=== PATIENT | male | born 1950 | race Caucasian/White ===

== ENCOUNTER 2016-11-16 22:32 | Inpatient (IN) | payer OTHER, MEDICAID ==
[~2016-11-16] VITALS: Ht 172.7 cm; Wt 82.8 kg
--- NOTE | ~2016-11-16 | CON ---
[place], [place] REPORT OF CONSULTATION NAME: LES COOLEY [facility] #: [id number] UNIT #: [id number] ROOM: 404 DOCTOR: ALISSA NDIAYE MD BIRTHDATE: [birth year] DOS: 11/21/2016 REASON FOR CONSULTATION: Assess the patient for ongoing acute exacerbation of COPD exacerbation. HISTORY OF PRESENT ILLNESS: A 65-year-old white male who has been noted frequently was admitted to the hospital for social reasons and also noted with acute exacerbation of COPD. The patient has been recently treated in the hospital and discharged home for this patient on 11/16/2016. The patient had bronchoscopy done at that time with significant removal of mucus plug improvement in his respiratory status noted. The patient came back and readmitted to the hospital. The patient on 11/17/2016 complaining of symptoms of shortness of breath. He was still noted symptoms of shortness of breath, which is described with exertion, not present at rest. He was also complaining of generalized pain in the joints. The cough has been noted mild to moderate at this time without any sputum expectoration or symptoms of wheezing. The patient denies symptoms of hemoptysis. REVIEW OF SYSTEMS: CONSTITUTIONAL: Complaining of fatigue. There were no symptoms of fever or chills. EYES: Denies burning, redness, tenderness. EARS, NOSE, AND THROAT: has sore throat, hoarseness, or otalgia. Postnasal drainage. GASTROINTESTINAL: Denies nausea, vomiting, diarrhea, abdominal pain, hematemesis, melena. CARDIOVASCULAR: Denies anginal pain, edema or pain of the lower extremities. SKIN: The patient with history of chronic psoriasis of the skin. No other abnormal lesions or rashes. GENITOURINARY: Denies dysuria, suprapubic pain, hematuria. GASTROINTESTINAL: Dysphagia, nausea, vomiting, diarrhea, hematemesis, melena. CENTRAL NERVOUS SYMPTOMS: Denies any dizziness, headache, diplopia or seizures. Remaining systems were reviewed. They were noted all negative. PAST MEDICAL HISTORY: Reviewed with the patient and they remained unchanged since my consultation on 11/08/2016 hospitalization. PAST SURGICAL HISTORY: Reviewed with the patient and they remained unchanged since my consultation on 11/08/2016 hospitalization. SOCIAL HISTORY: Reviewed with the patient and they remained unchanged since my consultation on 11/08/2016 hospitalization. FAMILY HISTORY: Reviewed with the patient and they remained unchanged since my consultation on 11/08/2016 hospitalization. The patient had a bronchoscopy that was done in 11/13/2016 was additional information. The consultation has been available to the document in the [employer] for review for the reference. [place], [place] REPORT OF CONSULTATION NAME: LES COOLEY UNIT #: [id number] ROOM: 404 DOCTOR: NEGRITO MCCARTNEY MD,ALISSA BIRTHDATE: [birth year] MEDICATIONS: Current administered medication patient noted use of diltiazem, enoxaparin 120 mg subq daily, lisinopril, finasteride, Protonix, Mucinex, Dulera, Singulair, naproxen, IV Solu-Medrol, DuoNeb, Levaquin, hydroxyzine p.r.n. and other p.r.n. medications. The patient noted with atrial fibrillation with rapid ventricular response on admission as well and treated with IV Cardizem, which is currently converted to the oral Cardizem and getting the anticoagulation with subcutaneous level with therapeutic dose. DRUG ALLERGIES: Noted allergies to Enbrel and Humira. PHYSICAL EXAMINATION: GENERAL: A 65-year-old male who has been noted currently awake and alert without any distress. Height of 5 feet 8 inches, weight ____ pounds, BMI 27.7. VITAL SIGNS: The patient shows a normal temperature, respiratory rate recorded 20, heart rate of 95, blood pressure 136/82 this morning. Pulse oxygen saturation of the patient noted on room air as 95% saturation. HEENT: Examination shows head was atraumatic. Eyes nonicterus. The neck was Supple. CARDIOVASCULAR: S1, S2 is audible. LUNGS: Noted without any crackles, rhonchi, or wheezing. The breaths are noted generally decreased bilaterally, scattered wheezing. ABDOMEN: Flat, soft, nontender. Bowel sounds present. CENTRAL NERVOUS SYMPTOMS: Nonfocal. EXTREMITIES: No edema. SKIN: Findings of psoriasis of the skin and extensor area of the extremities. LABORATORY DATA: BMP for the patient 11/18/2016, glucose 260, BUN and creatinine was normal. CK-MB, troponin of the patient on the and were noted as normal. Ethyl alcohol level noted was 11 for this patient on 11/17/2016. CT scan of 11/17/2016 done which was noted essentially without any acute abnormalities. CT of the cervical spine was also done. The patient on 11/17/2016 was noted without any acute injury. The CBC of patient that were done yesterday, WBC count 17.8, hemoglobin and hematocrit normal at 94% segmented neutrophils were noted. CBC of the patient that was done for this patient on 11/16/2016 were noted with WBC count 16.9, hemoglobin and hematocrit normal, platelet count was normal. Review of the chest x-ray of the patient that was done for the patient presented 11/17/2016 in the Emergency Room shows small area of subsegmental atelectasis of the left lower lobe with finding consistent with severe hyperinflation of the lung with finding of COPD and emphysema. IMPRESSION: 1. The patient who has been currently admitted to the hospital with atrial fibrillation, rapid ventricular response as well as other medical problems with ongoing commented exacerbation of chronic obstructive pulmonary disease. 2. Subsegmental atelectasis of the lower lungs for the patient was also noted for this patient. In the left lower lobe rather noted secondary to mucus [place], [place] REPORT OF CONSULTATION NAME: LES COOLEY UNIT #: [id number] ROOM: [facility] DOCTOR: NEGRITO MCCARTNEY MD,ALISSA BIRTHDATE: [birth year] impaction. 3. History of noncompliance. 4. History of chronic alcohol dependence as well as the tobacco dependence. 5. Noncompliance treatment will be also considered. 6. Steroid-induced hyperglycemia. PLAN OF TREATMENT: Continue corticosteroids, bronchodilators, oxygen supplementation ____ flutter valve and the Mucinex, which has already been given maximum dose 1200 mg b.i.d. Monitor respiratory status closely. Obtain the sputum for Gram stain culture. Obtain another chest x-ray today for the patient to assess the progression of the current subsegmental atelectasis in left lower lobe. Usual care, other supportive plan of management, other therapies. ALISSA MAHAN MD CM:CONSTR:REPORT OF CONSULTATION 1143 11/22/16 0505 interface
[2016-11-16 22:32] VITALS: BP 110/63
[~2016-11-16 22:32] MED LIST: ACETAMINOPHEN-H1 TA2 PO; APAP/HYDROCODON1 T45 PO; ASPIRIN325 M2 PO; AUGMENTIN 875875 MG PO; BUSPIRONE10 MG PO; CARAFATE1 GM PO; CEFTRIAXONE1 GM IJ; CELEBREX200 MG PO; CIPRO500 MG PO; CIPRODEX 0.3%-7.5 ML OT; CIPROFLOXACIN500 MG PO; CYCLOBENZAPRINE10 MG PO; DELTASONE10 MG PO; DELTASONE5 MG PO; DIFLUCAN100 MG PO; DILTIAZEM HCL90 M1 PO; DOVONEX0.0051 T; DOXYCYCLINE100 M3 PO; DOXYCYLINE50 MG PO; DULCOLAX10 MG R; DULE1ARO INH; DULERA100 INH; DUONEB 3 MG/3 ML3 M1 INH; DUONEB 3 MG/3 ML3 M1 NEB; Duoneb 3ML 3 MG/3 ML INH; FENTANYL T12.5 MCG/H T; FINASTERIDE5 MG PO; FLEET ADULT ENEM1 EA R; FLONASE 0.05% 121 EA NAS; FLONASE0.05 MG/AC NS; FLOVENT0.044 MG/A INH; FLUTICASON0.05 MG/A2 NAS; FLUTICASONE PRO; FUROSEMIDE10 MG/ML PO; Flovent 220 M220 MCG INH; GLUCOPHAGE500 MG PO; GUAIFENESIN DM PO; HYDROCOD BIT &1 TAB PO; HYDROCODONE BIT1 T11 PO; IBUPROFEN800 MG PO; K-POTASSIUM CH20 ME1 PO; KEFLEX500 MG PO; LASIX40 MG PO; LEVAQUIN 500 M500 M1 IV; LEVAQUIN750 M1 PO; LEVOFLOXACIN500 MG PO; LIDEX0.05% T; LISINOPRIL10 M1 PO; LISINOPRIL10 MG PO; LISINOPRIL20 MG PO; LOPRESSOR50 MG PO; MAG-OX 400400 MG PO; MELOXICAM15 MG PO; METFORMIN500 MG PO; METHOTREXATE2.5 M1 PO; METOPROLOL50 MG PO; MOM30 ML PO; MONTELUKAST SOD10 MG PO; MOTRIN800 MG PO; MUCINEX ER600 MG PO; MUCINEX600 MG PO; MULTIPLE VITAMI1 TA3 PO; MYSOLINE50 MG PO; Mysoline50 MG PO; NAPROSYN500 MG PO; NEXIUM40 MG PO; NORFLEX100 MG PO; NOVAPLUS SOLU-M40 MG IV; PERCOCET 325 MG1 TA2 PO; PREDNICOT10 MG PO; PREDNICOT20 MG PO; PREDNISONE10 MG PO; PREDNISONE20 M1 PO; PREDNISONE20 MG PO; PREDNISONE5 MG PO; PROPAFENONE HC150 MG PO; PROSCAR5 M1 PO; PROSCAR5 MG PO; PULMICORT RESP0.5 MG INH; PULMICORT RESP0.5 MG NEB; SEREVENT DISKU50 MCG INH; SINGULAIR CHEWAB4 MG PO; SINGULAIR10 M1 PO; SINGULAIR10 MG PO; SPIRIVA -- 3018 MCG INH; SPIRIVA18 MCG PO; SYMBICORT1 AE1 IH; SYMBICORT1 AE1 INH; TERAZOSIN HCL5 M1 PO; TOPICORT0.051 TP; TOPICORT0.251 T; VIBRAMYCIN100 MG PO; VICO75300 PO; VICODIN 5-3001 EACH PO; VICODIN 5/500 505 MG PO; XARE20MG PO; ZITHROMAX Z PA250 MG PO; ZITHROMAX Z-PA250 MG PO; ZITHROMAX250 MG PO
[2016-11-16 23:51] LABS: URINE AMPHETAMINES < 1000 (1000ng/ml); URINE BARBITURATES < 200 (200ng/ml); URINE COCAINE < 300 (300ng/ml)
[2016-11-16 23:54] LABS: BILIRUBIN NEGATIVE (NEGATIVE); BLOOD NEGATIVE (NEGATIVE); CLARITY CLEAR (CLEAR); COLOR YELLOW (YELLOW); GLUCOSE NEGATIVE (NEGATIVE); KETONE NEGATIVE (NEGATIVE); LEUKO ESTERASE NEGATIVE (NEGATIVE); NITRITE NEGATIVE (NEGATIVE); PROTEIN NEGATIVE (NEGATIVE); SPECIFIC GRAVITY <= 1.005 (1.005-1.030); UROBILINOGEN 0.2 E.U./dl (0.2-1.0)
[2016-11-16 23:58] LABS: BASO # 0.1 10*3/uL (0.0-0.1); BASO % 0.4 % (0.0-1.0); HEMATOCRIT 47.7 % (42.0-52.0); HEMOGLOBIN 15.6 g/dl (14.0-18.0); IG # 0.3 10*3/uL (0.0-0.1); LYMPH # 0.5 10*3/uL (1.3-4.4); LYMPH % 2.8 % (27.0-41.0); MEAN CORPUSCULAR HGB 29.1 pg (27.0-31.0); MEAN CORPUSCULAR HGB CONC 32.7 g/dl (33.0-37.0); MEAN PLATELET VOLUME 9.1 fl (9.6-12.3); MONO # 1.3 10*3/uL (0.1-1.0); MONO % 7.8 % (3.0-9.0); NEUT # 14.8 10*3/uL (2.3-7.9); NEUT % 87.5 % (47.0-73.0); PLATELET COUNT AUTOMATED 367 10*3/uL (130-400); RED BLOOD COUNT 5.36 10*6/uL (4.50-5.90); RED CELL DISTRI WIDTH 12.5 % (0-14.5); WHITE BLOOD COUNT 16.9 10*3/uL (4.8-10.8)
[2016-11-17 00:06] LABS: EPITHELIAL CELLS 0-5; URINE REFLEX COMMENT NO (NO); WBC 0-2 wbc/hpf (0-5)
[2016-11-17 00:10] LABS: ALBUMIN 3.5 gm/dl (3.1-4.5); ALKALINE PHOSPHATASE 43 U/L (45-117); BILIRUBIN, TOTAL 0.4 mg/dl (0.2-1.0); BUN 21 mg/dl (7-24); CARBON DIOXIDE 25 mmol/L (21-32); CHLORIDE 104 mmol/L (98-107); EST GLOM FILT AFRICAN AMERICAN > 60 ml/min; GLUCOSE 297 mg/dL (65-99); POTASSIUM 4.5 mmol/L (3.5-5.1); SGOT/AST 22 IU/L (3-35); SGPT/ALT 22 U/L (12-78); SODIUM 141 mmol/L (136-145); TOTAL PROTEIN 6.4 gm/dL (6.4-8.2)
[2016-11-17 07:17] VITALS: BP 110/74
[2016-11-17 12:00] VITALS: BP 113/70
[2016-11-17 16:00] VITALS: BP 114/73
[2016-11-17 20:00] VITALS: BP 146/73
[2016-11-18] VITALS: BP 146/74
[2016-11-18 07:35] LABS: HEMATOCRIT 45.7 % (42.0-52.0); HEMOGLOBIN 14.4 g/dl (14.0-18.0); MEAN CELL VOLUME 89.4 fl (80.0-94.0); MEAN CORPUSCULAR HGB 28.2 pg (27.0-31.0); MEAN CORPUSCULAR HGB CONC 31.5 g/dl (33.0-37.0); MEAN PLATELET VOLUME 9.2 fl (9.6-12.3); PLATELET COUNT AUTOMATED 318 10*3/uL (130-400); RED BLOOD COUNT 5.11 10*6/uL (4.50-5.90); RED CELL DISTRI WIDTH 12.4 % (0-14.5); WHITE BLOOD COUNT 14.8 10*3/uL (4.8-10.8)
[2016-11-18 07:42] LABS: BUN 24 mg/dl (7-24); CARBON DIOXIDE 28 mmol/L (21-32); CHLORIDE 102 mmol/L (98-107); EST GLOM FILT AFRICAN AMERICAN > 60 ml/min; GLUCOSE 263 mg/dL (65-99); MAGNESIUM 2.7 mg/dL (1.5-2.1); POTASSIUM 4.4 mmol/L (3.5-5.1); SODIUM 139 mmol/L (136-145)
[2016-11-18 08:00] VITALS: BP 122/74
[2016-11-18 08:03] LABS: LYMPHOCYTE # 0.1 10*3/uL (1.3-4.4); MONOCYTE # 0.3 10*3/uL (0.1-1.0); MYELOCYTES 2 % (0-0); NEUTROPHIL # 14.1 10*3/uL (2.3-7.9); NEUTROPHILS 95 % (47-73); PLATELET SUFFICIENCY NORMAL (NORMAL); TOTAL CELLS COUNTED 100 #CELLS
[2016-11-18 12:00] VITALS: BP 118/68
[2016-11-18 16:00] VITALS: BP 130/70
[2016-11-19] VITALS: BP 150/79
[2016-11-19] MEDS ORDERED: DUONEB 3 MG/3 ML3 M1 INH (04:16)
[2016-11-19 08:00] VITALS: BP 1014/70; BP 104/70
[2016-11-19 12:00] VITALS: BP 106/66
[2016-11-19 16:00] VITALS: BP 110/64; BP 98/56
[2016-11-19 20:00] VITALS: BP 113/64; BP 120/78
[2016-11-19 22:00] VITALS: BP 118/80
[2016-11-20] VITALS (10 sets, daily range): BP systolic 100–122; BP diastolic 59–80
[2016-11-20 06:12] LABS: ALKALINE PHOSPHATASE 36 U/L (45-117); BILIRUBIN, TOTAL 0.5 mg/dl (0.2-1.0); BUN 27 mg/dl (7-24); CARBON DIOXIDE 23 mmol/L (21-32); CHLORIDE 101 mmol/L (98-107); EST GLOM FILT AFRICAN AMERICAN > 60 ml/min; GLUCOSE 386 mg/dL (65-99); MAGNESIUM 2.5 mg/dL (1.5-2.1); PHOSPHOROUS 3.4 mg/dL (2.5-4.9); POTASSIUM 4.8 mmol/L (3.5-5.1); SGOT/AST 14 IU/L (3-35); SGPT/ALT 21 U/L (12-78); SODIUM 137 mmol/L (136-145); TOTAL PROTEIN 5.8 gm/dL (6.4-8.2)
[2016-11-20 06:20] LABS: HEMATOCRIT 44.4 % (42.0-52.0); HEMOGLOBIN 14.4 g/dl (14.0-18.0); MEAN CELL VOLUME 89.5 fl (80.0-94.0); MEAN CORPUSCULAR HGB CONC 32.4 g/dl (33.0-37.0); MEAN PLATELET VOLUME 9.6 fl (9.6-12.3); PLATELET COUNT AUTOMATED 290 10*3/uL (130-400); RED BLOOD COUNT 4.96 10*6/uL (4.50-5.90); RED CELL DISTRI WIDTH 12.7 % (0-14.5); WHITE BLOOD COUNT 17.8 10*3/uL (4.8-10.8)
[2016-11-20 07:11] LABS: BURR CELLS FEW; LYMPHOCYTE # 0.2 10*3/uL (1.3-4.4); MONOCYTE # 0.9 10*3/uL (0.1-1.0); NEUTROPHIL # 16.7 10*3/uL (2.3-7.9); NEUTROPHILS 94 % (47-73); PLATELET SUFFICIENCY NORMAL (NORMAL); TOTAL CELLS COUNTED 100 #CELLS; TOXIC GRANULATION SLIGHT
[2016-11-21 08:00] VITALS: BP 126/54; BP 136/82
[2016-11-21 12:00] VITALS: BP 147/83
[2016-11-21] MEDS ORDERED: DILTIAZEM HCL60 MG PO (15:10)
[2016-11-21] MEDS ORDERED: CARDIZEM CD120 M2 PO (15:22)
[2016-11-21] MEDS ORDERED: ECPIRIN325 MG PO (15:22)
[2016-12-04 15:12] LABS: ORGANISM ID, MOLD Final report (.); RESULT 1 Penicillium species (.)
[2016-12-08] MEDS ORDERED: DOXYCYCLINE100 M3 PO (14:52)
[2016-12-08] MEDS ORDERED: CALCIUM CARBON500 M1 PO (14:52)
[2016-12-08] MEDS ORDERED: D-1000 185 MG-11 TAB PO (14:52)
[2016-12-08] MEDS ORDERED: PREDNISONE10 MG PO (14:52)
[2016-12-12] MEDS ORDERED: DILTIAZEM HYDR180 M2 PO (09:56)
[2016-12-12] MEDS ORDERED: DOXYCYCLINE100 M3 PO (09:56)
[2016-12-12] MEDS ORDERED: ACETAMINOPHEN-H1 TA2 PO (09:56)
[2016-12-12] MEDS ORDERED: PREDNISONE10 MG PO (09:56)
[2016-12-12] MEDS ORDERED: CYCLOBENZAPRINE10 MG PO (09:57)
== END 2016-11-21 17:05 | disposition home or self-care (01) | DRG 871 ==
LOC: ED 22:32 → EDHOLD 11-17 09:08 → 4E 11-17 09:08
PROVIDERS: Hospitalist; Internal Medicine; Internal Medicine Hospice and Palliative Medicine; Nurse Practitioner Family
DX: A41.9 Sepsis, unspecified organism (principal); J18.9 Pneumonia, unspecified organism; E44.0 Moderate protein-calorie malnutrition; J44.1 Chronic obstructive pulmonary disease with (acute) exacerbation; I48.0 Paroxysmal atrial fibrillation; F32.9 Major depressive disorder, single episode, unspecified; E83.41 Hypermagnesemia; I10 Essential (primary) hypertension; J98.11 Atelectasis; F10.120 Alcohol abuse with intoxication, uncomplicated; G89.29 Other chronic pain; R73.9 Hyperglycemia, unspecified; T38.0X5A Adverse effect of glucocorticoids and synthetic analogues, initial encounter; F17.200 Nicotine dependence, unspecified, uncomplicated; K21.9 Gastro-esophageal reflux disease without esophagitis; N40.0 Benign prostatic hyperplasia without lower urinary tract symptoms; Z79.01 Long term (current) use of anticoagulants; Z79.82 Long term (current) use of aspirin; Z88.8 Allergy status to other drugs, medicaments and biological substances; Z98.42 Cataract extraction status, left eye; Z82.49 Family history of ischemic heart disease and other diseases of the circulatory system; Z82.3 Family history of stroke; Z79.899 Other long term (current) drug therapy; Z91.19 Patient's noncompliance with other medical treatment and regimen; Z68.27 Body mass index [BMI] 27.0-27.9, adult